=== PATIENT | male | born 1960 | race African-American/Black ===

== ENCOUNTER 2020-07-09 08:14 | Inpatient (IN) ==
[2020-07-09] MEDS ORDERED: ONDANSETRON 4 MG/2 ML VIAL IV STA (09:20)
[2020-07-09] MEDS ORDERED: KETOROLAC 30 MG/1 ML VIAL IV STA (09:20)
[2020-07-09] MEDS ORDERED: SODIUM CHLORIDE 0.9% 1,000 ML IV STA (09:20)
[2020-07-09 09:25] LABS: Basophils # 0.1 10*3/uL (0.0-0.2); Basophils % 0.4 % (0.0-0.8); Eosinophils # 0.2 10*3/uL (0.0-0.87); Eosinophils % 1.1 % (0.00-10.9); Hematocrit 42.3 VOL% (42.0-52.0); Hemoglobin 13.3 GM/DL (14.0-18.0); Immature Granulocytes Absolute 0.35 #; Lymphocytes # 2.4 10*3/uL (1.4-4.0); Lymphocytes % 13.6 % (21.2-54.2); Mean Corpuscular HGB Conc 31.4 GM/DL (32-36); Mean Corpuscular Volume 101.9 FL (87-102); Mean Platelet Volume 10.1 FL (9.6-12.0); Monocytes % 3.7 % (1.7-12.7); NRBC # 0.02 10*3/uL; Neutrophils % 79.2 % (38.7-73.9); Platelet Count 282 T/CUMM (130-400); Red Blood Count 4.15 MC/CUMM (3.8-5.5); Red Cell Distribution Width 12.9 % (9.3-17.3); White Blood Count 17.4 T/CUMM (4-12)
[2020-07-09] MEDS ORDERED: cefTRIAXone 1,000 MG in SODIUM CHLORIDE 0.9% 100 ML IV STA (09:34)
[2020-07-09 09:45] LABS: Bilirubin,Total 0.5 MG/DL (0.2-1.0); Calcium 8.9 MG/DL (8.5-10.1); Osmolality,Calculated 285.3 MOS/KG (273-304); Total Protein 7.3 G/DL (6.4-8.3)
[2020-07-09] MEDS ORDERED: cefTRIAXone 1,000 MG VIAL ONE (10:01)
[2020-07-09] MEDS ORDERED: ACETAMINOPHEN 325 MG TABLET PO PRN (10:37)
[2020-07-09] MEDS ORDERED: SODIUM CHLORIDE 0.45% 1,000 ML IV SCH (11:00)
[2020-07-09 11:41] LABS: Apearance,Urine CLEAR (Clear); Bilirubin,Urine Negative (Negative); Blood, Urine Negative (Negative); Glucose,Urine (UA) Negative (Negative); Ketones,Urine Negative (Negative); Mucus,Urine Occasional /LPF (Occasional); Nitrite,Urine Negative (Negative); Protein,Urine 30 MG/DL; RBC,Urine 1 /HPF (0-4); Urine Color Yellow (Yellow); Urine Specific Gravity 1.019 (1.001-1.035); Urine Urobilinogen < 2.0 EU/DL (0.2-1.0); WBC,Urine 1 /HPF (0-6)
[2020-07-09] MEDS ORDERED: ENOXAPARIN 40 MG/0.4 ML SYRINGE SUBCUT SCH ×2 (12:00→21:00)
[2020-07-09] MEDS: SODIUM CHLORIDE 0.9% 1,000 ML IV SCH ×2 (12:19→14:38)
[2020-07-09 12:41] LABS: Platelet Estimate Adequate; Polychromasia Slight
[2020-07-09] MEDS ORDERED: PANTOPRAZOLE 40 MG VIAL IV SCH (14:30)
[2020-07-09] MEDS: ONDANSETRON 4 MG/2 ML VIAL IV PRN (14:38)
[2020-07-09 15:16] LABS: Hematocrit 39.5 VOL% (42.0-52.0); Hemoglobin 12.8 GM/DL (14.0-18.0)
[2020-07-09] MEDS: BACLOFEN 10 MG TABLET PO SCH ×2 (15:59→20:48)
[2020-07-09] MEDS: SODIUM CHLORIDE 0.45% 1,000 ML IV SCH ×2 (17:30→21:30)
[2020-07-09 18:03] LABS: Hematocrit 37.7 VOL% (42.0-52.0); Hemoglobin 12.3 GM/DL (14.0-18.0)
[2020-07-09] MEDS: PANTOPRAZOLE INJ 200 MG in SODIUM CHLORIDE 0.9% 250 ML IV SCH (18:05)
[2020-07-09 18:32] LABS: Troponin I 0.098 NG/ML (0.00-0.045)
[2020-07-09] MEDS: ATORVASTATIN 10 MG TABLET PO SCH (20:48)
[2020-07-09] MEDS: NORTRIPTYLINE 25 MG CAPSULE PO SCH (20:48)
[2020-07-09] MEDS: PREGABALIN 50 MG CAPSULE PO SCH (20:48)
[2020-07-10] MEDS: SODIUM CHLORIDE 0.45% 1,000 ML IV SCH ×6 (02:00→20:57)
[2020-07-10 04:55] LABS: Hematocrit 33.2 VOL% (42.0-52.0); Hemoglobin 10.6 GM/DL (14.0-18.0)
[2020-07-10 05:16] LABS: Calcium 8.3 MG/DL (8.5-10.1); Osmolality,Calculated 287.3 MOS/KG (273-304)
[2020-07-10] MEDS: ONDANSETRON 4 MG/2 ML VIAL IV PRN ×3 (08:15→21:27)
[2020-07-10] MEDS ORDERED: propofoL 200 MG/20 ML VIAL IV ONE (09:00)
[2020-07-10] MEDS ORDERED: PANTOPRAZOLE 40 MG TABLET PO SCH (09:00)
[2020-07-10] MEDS ORDERED: ESMOLOL 100 MG/10 ML VIAL IV ONE (09:00)
[2020-07-10] MEDS ORDERED: LIDOCAINE 2% 5 ML VIAL ONE (09:00)
[2020-07-10] MEDS ORDERED: ASPIRIN EC 325 MG TABLET PO SCH (09:00)
[2020-07-10 09:37] LABS: Hematocrit 33.3 VOL% (42.0-52.0); Hemoglobin 10.7 GM/DL (14.0-18.0)
[2020-07-10] MEDS: LOSARTAN 25 MG TABLET PO SCH (09:59)
[2020-07-10] MEDS: cloNIDine 0.1 MG TABLET PO SCH ×2 (09:59→20:04)
[2020-07-10] MEDS: PREGABALIN 50 MG CAPSULE PO SCH ×2 (10:30→20:50)
[2020-07-10] MEDS: LORATADINE 10 MG TABLET PO SCH (10:30)
[2020-07-10] MEDS: BACLOFEN 10 MG TABLET PO SCH ×3 (10:30→20:50)
[2020-07-10] MEDS: cloNIDine 0.1 MG TABLET PO PRN ×3 (10:50→22:04)
[2020-07-10] MEDS ORDERED: ONDANSETRON 4 MG/2 ML VIAL ONE (12:46)
[2020-07-10] MEDS ORDERED: EPINEPHrine 1 MG/ML VIAL ONE (13:42)
[2020-07-10 16:29] LABS: Hematocrit 31.2 VOL% (42.0-52.0)
[2020-07-10] MEDS: PANTOPRAZOLE INJ 200 MG in SODIUM CHLORIDE 0.9% 250 ML IV SCH (16:44)
[2020-07-10] MEDS: ATORVASTATIN 10 MG TABLET PO SCH (20:50)
[2020-07-10] MEDS: NORTRIPTYLINE 25 MG CAPSULE PO SCH (20:50)
[2020-07-11] MEDS: SODIUM CHLORIDE 0.45% 1,000 ML IV SCH ×4 (00:43→18:20)
[2020-07-11 05:27] LABS: Basophils # 0.1 10*3/uL (0.0-0.2); Basophils % 0.4 % (0.0-0.8); Eosinophils # 0.2 10*3/uL (0.0-0.87); Eosinophils % 1.8 % (0.00-10.9); Hematocrit 26.2 VOL% (42.0-52.0); Hemoglobin 8.4 GM/DL (14.0-18.0); Immature Granulocytes % 1.3 %; Immature Granulocytes Absolute 0.17 #; Lymphocytes # 2.9 10*3/uL (1.4-4.0); Lymphocytes % 21.8 % (21.2-54.2); Mean Corpuscular HGB Conc 32.1 GM/DL (32-36); Mean Corpuscular Volume 101.2 FL (87-102); Mean Platelet Volume 9.4 FL (9.6-12.0); Monocytes % 7.5 % (1.7-12.7); NRBC # 0.03 10*3/uL; Neutrophils % 67.2 % (38.7-73.9); Platelet Count 211 T/CUMM (130-400); Red Blood Count 2.59 MC/CUMM (3.8-5.5); Red Cell Distribution Width 13.2 % (9.3-17.3); White Blood Count 13.5 T/CUMM (4-12)
[2020-07-11 05:45] LABS: Calcium 7.8 MG/DL (8.5-10.1); Osmolality,Calculated 277.7 MOS/KG (273-304)
[2020-07-11] MEDS: cloNIDine 0.1 MG TABLET PO SCH ×2 (08:40→21:04)
[2020-07-11] MEDS: LORATADINE 10 MG TABLET PO SCH (08:40)
[2020-07-11] MEDS: PREGABALIN 50 MG CAPSULE PO SCH ×2 (08:40→21:04)
[2020-07-11] MEDS: BACLOFEN 10 MG TABLET PO SCH ×3 (08:40→21:04)
[2020-07-11] MEDS: LOSARTAN 25 MG TABLET PO SCH (08:40)
[2020-07-11] MEDS: PANTOPRAZOLE INJ 200 MG in SODIUM CHLORIDE 0.9% 250 ML IV SCH (18:19)
[2020-07-11] MEDS: NORTRIPTYLINE 25 MG CAPSULE PO SCH (21:04)
[2020-07-11] MEDS: ATORVASTATIN 10 MG TABLET PO SCH (21:04)
[2020-07-12 03:51] LABS: Basophils % 0.4 % (0.0-0.8); Eosinophils # 0.5 10*3/uL (0.0-0.87); Eosinophils % 5.2 % (0.00-10.9); Hematocrit 25.2 VOL% (42.0-52.0); Hemoglobin 8.1 GM/DL (14.0-18.0); Immature Granulocytes % 1.3 %; Immature Granulocytes Absolute 0.12 #; Lymphocytes # 2.1 10*3/uL (1.4-4.0); Lymphocytes % 22.2 % (21.2-54.2); Mean Corpuscular HGB Conc 32.1 GM/DL (32-36); Mean Platelet Volume 9.8 FL (9.6-12.0); Monocytes % 7.3 % (1.7-12.7); Neutrophils % 63.6 % (38.7-73.9); Platelet Count 204 T/CUMM (130-400); Red Blood Count 2.52 MC/CUMM (3.8-5.5); Red Cell Distribution Width 13.3 % (9.3-17.3); White Blood Count 9.5 T/CUMM (4-12)
[2020-07-12 04:15] LABS: Calcium 8.2 MG/DL (8.5-10.1); Osmolality,Calculated 279.3 MOS/KG (273-304)
[2020-07-12] MEDS: BACLOFEN 10 MG TABLET PO SCH ×3 (08:49→20:43)
[2020-07-12] MEDS: cloNIDine 0.1 MG TABLET PO SCH ×2 (08:49→20:43)
[2020-07-12] MEDS: LORATADINE 10 MG TABLET PO SCH (08:50)
[2020-07-12] MEDS: LOSARTAN 25 MG TABLET PO SCH (08:50)
[2020-07-12] MEDS: PREGABALIN 50 MG CAPSULE PO SCH ×2 (09:18→20:43)
[2020-07-12] MEDS: ATORVASTATIN 10 MG TABLET PO SCH (20:43)
[2020-07-12] MEDS: SODIUM CHLORIDE 0.45% 1,000 ML IV SCH (20:43)
[2020-07-12] MEDS: PANTOPRAZOLE 40 MG TABLET PO SCH (20:43)
[2020-07-12] MEDS: NORTRIPTYLINE 25 MG CAPSULE PO SCH (20:43)
[2020-07-12] MEDS ORDERED: PANTOPRAZOLE 40 MG TABLET PO SCH (21:00)
[2020-07-12] MEDS ORDERED: PANTOPRAZOLE 40 MG VIAL IV SCH (21:00)
[2020-07-13 06:13] LABS: Basophils % 0.4 % (0.0-0.8); Eosinophils # 0.4 10*3/uL (0.0-0.87); Eosinophils % 5.1 % (0.00-10.9); Hematocrit 25.8 VOL% (42.0-52.0); Immature Granulocytes % 1.3 %; Lymphocytes # 1.6 10*3/uL (1.4-4.0); Lymphocytes % 20.3 % (21.2-54.2); Mean Corpuscular Volume 103.2 FL (87-102); Mean Platelet Volume 9.6 FL (9.6-12.0); Monocytes % 8.4 % (1.7-12.7); NRBC # 0.13 10*3/uL; Neutrophils % 64.5 % (38.7-73.9); Platelet Count 221 T/CUMM (130-400); Red Cell Distribution Width 13.3 % (9.3-17.3)
[2020-07-13 06:28] LABS: Osmolality,Calculated 280.1 MOS/KG (273-304)
[2020-07-13] MEDS: LOSARTAN 25 MG TABLET PO SCH (09:29)
[2020-07-13] MEDS: PREGABALIN 50 MG CAPSULE PO SCH ×2 (09:29→20:16)
[2020-07-13] MEDS: cloNIDine 0.1 MG TABLET PO SCH ×2 (09:29→20:16)
[2020-07-13] MEDS: FERROUS SULFATE 325 MG TABLET PO SCH (09:30)
[2020-07-13] MEDS: PANTOPRAZOLE 40 MG TABLET PO SCH ×2 (09:30→20:17)
[2020-07-13] MEDS: LORATADINE 10 MG TABLET PO SCH (09:30)
[2020-07-13] MEDS: BACLOFEN 10 MG TABLET PO SCH ×3 (09:30→20:16)
[2020-07-13] MEDS ORDERED: SODIUM CHLORIDE 0.9% 1,000 ML IV PRN (12:10)
[2020-07-13] MEDS ORDERED: FUROSEMIDE 20 MG/2 ML VIAL IV ONE ×2 (12:16→20:30)
[2020-07-13] MEDS ORDERED: MAGNESIUM HYDROXIDE SUSP 30 ML UDCUP PO PRN (17:43)
[2020-07-13] MEDS: ATORVASTATIN 10 MG TABLET PO SCH (20:16)
[2020-07-13] MEDS: SODIUM CHLORIDE 0.45% 1,000 ML IV SCH (20:16)
[2020-07-13] MEDS: NORTRIPTYLINE 25 MG CAPSULE PO SCH (20:16)
[2020-07-14] MEDS: cloNIDine 0.1 MG TABLET PO PRN (00:30)
[2020-07-14 05:09] LABS: Basophils % 0.3 % (0.0-0.8); Eosinophils # 0.3 10*3/uL (0.0-0.87); Eosinophils % 3.8 % (0.00-10.9); Hematocrit 29.3 VOL% (42.0-52.0); Hemoglobin 9.4 GM/DL (14.0-18.0); Immature Granulocytes % 1.4 %; Immature Granulocytes Absolute 0.12 #; Lymphocytes # 1.7 10*3/uL (1.4-4.0); Lymphocytes % 20.3 % (21.2-54.2); Mean Corpuscular HGB Conc 32.1 GM/DL (32-36); Mean Platelet Volume 9.5 FL (9.6-12.0); Monocytes % 8.7 % (1.7-12.7); NRBC # 0.11 10*3/uL; Neutrophils % 65.5 % (38.7-73.9); Platelet Count 260 T/CUMM (130-400); Red Blood Count 2.96 MC/CUMM (3.8-5.5); Red Cell Distribution Width 15.3 % (9.3-17.3); White Blood Count 8.6 T/CUMM (4-12)
[2020-07-14 05:36] LABS: Calcium 8.3 MG/DL (8.5-10.1); Osmolality,Calculated 275.4 MOS/KG (273-304)
[2020-07-14] MEDS: BACLOFEN 10 MG TABLET PO SCH (09:08)
[2020-07-14] MEDS: FERROUS SULFATE 325 MG TABLET PO SCH (09:08)
[2020-07-14] MEDS: LORATADINE 10 MG TABLET PO SCH (09:08)
[2020-07-14] MEDS: LOSARTAN 25 MG TABLET PO SCH (09:08)
[2020-07-14] MEDS: cloNIDine 0.1 MG TABLET PO SCH (09:08)
[2020-07-14] MEDS: PANTOPRAZOLE 40 MG TABLET PO SCH (09:08)
[2020-07-14] MEDS: PREGABALIN 50 MG CAPSULE PO SCH (09:08)
[2020-07-14 12:17] VITALS: BP 136/70
== END 2020-07-14 14:01 | DRG 378 ==
LOC: EDUNIT# → EDBD → N.ED 08:14 → N.EDINP 10:37 → SUATTDRO 10:37 → N.3E 11:33 → N.ICU 16:49 → N.4E 07-12 13:16
PROVIDERS: ADMIT Internal Medicine; ATTEND Internal Medicine